=== PATIENT | male | born 1960 | race Caucasian/White ===

== ENCOUNTER 2025-06-20 13:14 | Emergency (ER) | payer BC, SELFPAY ==
--- OUTSIDE RECORDS SUMMARY | 2025-06-20 13:17 | XMS_ITS | Clinical Summary ---
Author Organization [facility] Address [address] [place] [id number] Care Team Providers Care Title I Teacher Name Role Phone Jordon Vences MD Primary Care Provider [phone] Allergies No known active allergies Medications omega-3 fatty acids-vitamin E (FISH OIL) 1,000 mg cap Take 1 capsule by mouth 4 times daily. 0 09/12/2016 Active multivitamin (MVI) tabletIndicatio ns:Physical exam Take 1 tablet by mouth once daily. 0 09/12/2016 Active Active Problems Problem Noted Date Diagnosed Date Colon polyps 09/12/2016 Overview (09/12/2016): Colonoscopy 4 years ago with benign polyps, repeat study 2016. Prostate enlargement 09/12/2016 Primary osteoarthritis of hand 09/12/2016 Encounters Date Type Department Care Team Description 03/20/2025 1:05 PM CDT Office Visit [facility] [address] [place] [address] Jordon Vences MD Physical (65 yo male.); Gi Problem (More frequent reflux mostly at night. Bloating as well.) 03/20/2025 Travel from Last 3 Months Immunizations Immunization Administration Dates Next Due Influenza, IIV4 06/04/2020,11/24/2019 Td, Preservative Free (age >= 7 Years) 1 Tdap 12/16/2021,01/02/2012 Zoster (Shingrix-RZV, recombinant) 09/16/2019, Family History Medical History Relation Name Comments Cancer Father bladder Lymphoma Father non Hodgkin's; he of non Hodgkins and old age at 86. Valvular heart disease Father s/p v alve replacement possibly mitral Other Mother sclerosing chol angitis 54 Good Health Sister Relation Name Status Comments Father Heart valve rep lacement Mother sclerosing chol angits Sister Alive Social History Tobacco Use Types Packs/Day Years Used Date Smoking Tobacco: Never Smokeless Tobacco: Never Tobacco Cessation:Counseling Given: Yes Alcohol Use Standard Drinks/Week Comments Yes 5 (1 standard drink = 0.6 oz pur e alcohol) 0-1 per day PHQ-2 Answer Date Recorded PHQ-2 TOTAL SCORE 0 02/29/2024 Social Connections Answer Date Recorded Do you often feel lonely or isolated from those around you? 0 03/20/2025 Financial Resource Strain Answer Date R ecorded Difficulty of Paying Living Expenses 3 03/20/2025 Difficulty of Paying Living Expenses Not on file 03/20/2025 Food Insecurity Answer Date Recorded Do you worry your food will run out before you are able to buy more? 1 03/20/2025 Transportation Needs Answer Date Record ed Does lack of transportation keep you from medica l appointments? 1 03/20/2025 Does lack of transportation keep you from work, meetings or getting things that you need? 1 03/20/2025 Housing Stability Answer Date Recorded What is your housing situation today? 1 03/20/2025 Utilities Answer Date Recorded Do you have trouble paying f or utilities (for example, heat, electricity, water, phone)? 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 Not on file Not on file Obstetrics History Last Filed Vital Signs Vital Sign Reading Time Taken Comments Blood Pressure 114/82 03/20/2025 1:57 PM CDT Pulse 74 03/20/2025 1:10 PM CDT Temperature 36.1 C (97 F) 03/20/2025 1:10 PM CDT Respiratory Rate - - Oxygen Saturation 99% 03/20/2025 1:10 PM CDT Inhaled Oxygen Concentration - - Weight 71 kg (156 lb 8 oz) 03/20/2025 1:10 PM CD T Height 177.1 cm (5' 9.72) 03/20/2025 1:10 PM CD T Body Mass Index 22.63 03/20/2025 1:10 PM CDT Plan of Treatment Health Maintenance Due Date Last Done Comments Pneumococcal series for age 50+ (1 of 1 - PCV) 02/08/2010 Depression screening for age 12+ 02/28/2025 02/29/2024, 12/16/2021, 11/06/2020, Additional history exists COVID-19 vaccine series ( - season) 2025 07/10/2023, 08/12/2022, 12/10/2021, Additional history exists Influenza Vaccine (#1) 2025 06/04/2020, 2019 BMI (ht and wt on same day) for age 18+ 03/20/2026 03/20/2025, 02/29/2024, 12/16/2021, Additional history exists Fecal testing sDNA-FIT (Cologuard) for age 45-75 03/07/2027 03/07/2024 Lipids for age 45-75 03/20/2030 03/20/2025, 02/29/2024, 12/16/2021, Additional history exists Tetanus booster 12/17/2031 12/16/2021, 12/10, 09/11/2000 RSV vaccine for adults or (1 - 1-dose 75+ series) 02/08/2035 Zoster (shingles) series for age 50+ Completed 09/16/2019, 04/10/2019 Hepatitis C screening for age 18-79 Completed 11/05/2020 HIV for age 15-65 Completed 02/29/2024 Hepatitis B series for 19+ Aged Out N o longer eligible based on patient's age to complete this topic Procedures Procedure Name Priority Date/Time Associated Diagnosis Comments LIPID PANEL W REFLEX MEASURED LDL Routine 03/20/2025 2:19 PM CDT Other hyperlipidemia PSA TOTAL Routine 03/20/2025 2:19 PM CDT Prostate cancer screening SDNA-FIT EXTERNAL (COLOGUARD) Routine 03/07/2024 1:10 PM CDT Screening for colon cancer ANTI HIV 1/2 Routine 02/29/2024 3:11 PM CDT Encounter for screening for HIV ANTI HCV Routine 11/05/2020 4:30 PM CHILD NURSE Encounter for hepatitis C screening test for low risk patient from Last 3 Months or Most Recently Relevant to Health Maintenance Results * (ABNORMAL) LIPID PANEL W REFLEX MEASURED LDL (03/20/2025 2:19 PM CDT) [facility] CHOLESTEROL, TOTAL 232(H) <200 mg/dL [facility] HDL CHOLESTEROL 59 > OR = 40 mg/dL [facility] TRIGLYCERIDES 67 <150 mg/dL [facility] LDL-CHOLESTEROL 157(H) mg/dL (calc) [facility] Comment: Reference range: <100 Desirable range <100 mg/dL for primary prevention; <70 mg/dL for patients with CHD or diabetic patients with > or = 2 CHD risk factors. LDL-C is now calculated using the Mj-Maldonado calculation, which is a validated novel method providing better accuracy than the Friedewald equation in the estimation of LDL-C. Mj SS et al. KELBY. 2013;310(19): 5168-0132 (http://education.Urtak/faq/DGJ126) CHOL/HDLC RATIO 3.9 <5.0 (calc) [facility] NON HDL CHOLESTEROL 173(H) <130 mg/dL (calc) [facility] Comment: For patients with diabetes plus 1 major ASCVD risk factor, treating to a non-HDL-C goal of <100 mg/dL (LDL-C of <70 mg/dL) is considered a therapeutic option. Blood BLOOD SPECIMEN / Unknown 03/20/2025 2:19 PM CDT 03/20/2025 2:19 PM CDT us Jordon Vences MD CHEMISTRY Final Resu lt [facility] [address] [place] [address], [facility] [address] [place] [phone] * PSA TOTAL (DIAG OR SCREEN) (03/20/2025 2:19 PM CDT) Pathologist [facility] PSA, TOTAL 1.05 < OR = 4.00 ng/mL [facility] Comment: The total PSA value from this assay system is standardized against the WHO standard. The test result will be approximately 20% lower when compared to the equimolar-standardized total PSA (Luis Mira). Comparison of serial PSA results should be interpreted with this fact in mind. This test was performed using the Siemens chemiluminescent method. Values obtained from different assay methods cannot be used interchangeably. PSA levels, regardless of value, should not be interpreted as absolute evidence of the presence or absence of disease. Blood BLOOD SPECIMEN / Unknown 03/20/2025 2:19 PM CDT 03/20/2025 2:19 PM CDT Jordon Vences MD CHEMISTRY Final Resu lt [facility] [address] [id number], [facility] [address] [place] [phone] * SDNA-FIT EXTERNAL (COLOGUARD) (03/07/2024 1:10 PM CDT) NONINV COLON CA DNA+OCC BLD SCRN STL-IMP Negative Negative 03/12/2024 12:38 AM CDT [facility] (CLIA #:[id number]) Comment: NEGATIVE TEST RESULT. A negative Cologuard result indicates a low likelihood that a colorectal cancer (CRC) or advanced adenoma (adenomatous polyps with more advanced pre-malignant features) is present. The chance that a person with a negative Cologuard test has a colorectal cancer is less than 1 in 1500 (negative predictive value >99.9%) or has an advanced adenoma is less than 5.3% (negative predictive value 94.7%). These data are based on a prospective cross-sectional study of 10,000 individuals at average risk for colorectal cancer who were screened with both Cologuard and colonoscopy. (Day King al, N Engl J Med 2014;370(14):4177-8028) The normal value (reference range) for this assay is negative. COLOGUARD RE-SCREENING RECOMMENDATION: Periodic colorectal cancer screening is an important part of preventive healthcare for asymptomatic individuals at average risk for colorectal cancer. Following a negative Cologuard result, the [place] [employer] Society and U.S. Multi-Society Task Force screening guidelines recommend a Cologuard re-screening interval of 3 years. References: [place] [employer] Guideline for Colorectal Cancer Screening: https://www.cancer.org/cancer/iqmzm-ebvvxg-htvhni/mnkvglypu-ylawcvxmu-vbudpsp/ac s-rec ommendations.html.; Simeon DK, Naren WIGGINS, Cristofer GrigsbyK, Colorectal Cancer Screening: Recommendations for Physicians and Patients from the U.S. Multi-Society Task Force on Colorectal Cancer Screening , Am J Gastroenterology 2017; 112:0930-0345. TEST DESCRIPTION: Composite algorithmic analysis of stool DNA-biomarkers with hemoglobin immunoassay. Quantitative values of individual biomarkers are not reportable and are not associated with individual biomarker result reference ranges. Cologuard is intended for colorectal cancer screening of adults of either sex, 45 years or older, who are at average-risk for colorectal cancer (CRC). Cologuard has been approved for use by the U.S. FDA. The performance of Cologuard was established in a cross sectional study of average-risk adults aged 50-84. Cologuard performance in patients ages 45 to 49 years was estimated by sub-group analysis of near-age groups. Colonoscopies performed for a positive result may find as the most clinically significant lesion: colorectal cancer [4.0%], advanced adenoma (including sessile serrated polyps greater than or equal to 1cm diameter) [20%] or non- advanced adenoma [31%]; or no colorectal neoplasia [45%]. These estimates are derived from a prospective cross-sectional screening study of 10,000 individuals at average risk for colorectal cancer who were screened with both Cologuard and colonoscopy. (Day King al, N Engl J Med 2014;370(14):1144-0997.) Cologuard may produce a false negative or false positive result (no colorectal cancer or precancerous polyp present at colonoscopy follow up). A negative Cologuard test result does not guarantee the absence of CRC or advanced adenoma (pre-cancer). The current Cologuard screening interval is every 3 years. ([place] [employer] Society and U.S. Multi-Society Task Force). Cologuard performance data in a 10,000 patient pivotal study using colonoscopy as the reference method can be accessed at the following location: www.[employer].Semantics3/results. Additional description of the Cologuard test process, warnings and precautions can be found at www.PushToTestoguard.Semantics3. Stool specimen (specimen) (Rectum) 03/07/2024 1:10 PM CDT 03/08/2024 6:31 AM CDT us Jordon Vencse MD URINE Final Resu lt Performing Organization Address [facility]/ZIP Co de Phone Number [employer] (CLIA #:[id number]) [address] [place] [address], * ANTI HIV 1/2 (02/29/2024 3:11 PM CDT) HIV-1/HIV-2 SCREEN Non-Reacti ve Non-Reacti ve 02/29/2024 8:58 PM CDT [facility] Comment:HIV-1 p24 and HIV-1/ HIV-2 Ab Not Detected. Blood BLOOD SPECIMEN / Unknown Venipuncture / Unknown 02/29/2024 3:11 PM CDT 02/29/2024 3:11 PM CDT us Jordon Vences MD SEND OUTS Final Resu lt Performing Organization Address [facility]/ZIP Co de Phone Number [facility] [address] [place] [address], * ANTI HCV (11/05/2020 4:30 PM CHILD NURSE) HEPATITIS C ANTIBODY Non-React dee Non-React dee 11/08/2020 4:01 PM CHILD NURSE [facility] Comment:Antibodies to HCV no t detected; does not exclude the possibility of exposure to HCV. Blood BLOOD SPECIMEN / Unknown Butterfly / Unknown 11/05/2020 4:30 PM CHILD NURSE 11/05/2020 4:30 PM CHILD NURSE us Jordon Vences MD SEND OUTS Final Resu lt [facility] [address] [place] [address], from Last 3 Months or Most Recently Relevant to Health Maintenance Insurance [employer] Care Teams Title I Teacher Relationship Specialty Start Date End Date Jordon [place] [address] PCP - General Family Practice 11/24/19
[2025-06-20 13:29] VITALS: BP 144/78; PULSE 113; RESP 18; TEMP 37.6; O2SAT 95; BMI 22.7
--- NOTE | 2025-06-20 13:49 | CRLHL7_ITS ---
For Patients: As a result of the Century Cures Act, medical imaging exams and procedure reports are released immediately into your electronic medical record. You may view this report before your referring provider. If you have questions, please contact your health care provider. Indication: Cough Technique: Chest 3 views. Comparison: None. Findings/Impression: Cardiovascular and mediastinum: Heart size is normal. Unremarkable mediastinum. Lungs and pleural spaces: There is a curvilinear opacity projecting over the left lower lung, indeterminate. Lungs are otherwise clear. No pleural effusion or pneumothorax. Bones and soft tissues: No significant findings. Dictated by Laura Mccurdy MD @ 06/20/2025 3:22:48 PM (Electronically Signed)
--- NOTE | 2025-06-20 13:51 | ED.GENADULT ---
HPI - General Adult General Chief complaint: Cough Stated complaint: Weak,Fever, ABD pain during urination Time Seen by Provider: 06/20/25 13:40 History of Present Illness HPI narrative: Patient is a pleasant 65 white male who is generally pretty healthy, on no home meds with no history of respiratory issues, presents with few day history of nasal congestion runny nose cough. He thought he was better for a day but then it seemed to recur, he has got some production to his cough. He also has some suprapubic discomfort and perhaps a slower stream than normal. He does not have any saddle type pain in his groin, he does report he had history of prostatitis in the past, but has not had issues with that recently. 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 The patient now does not feel short of breath he has no chest pain, he has had cough and congestion and some suprapubic discomfort that he is concerned about potential UTI. No blood in his urine, urine stream has been slightly slower than normal as mention. Related Data Home Medications ?Medication ?Instructions ?Recorded ?Confirmed No Known Home Medications 06/20/25 06/20/25 Allergies Allergy/AdvReac Type Severity Reaction Status Date / Time No Known Drug Allergies Allergy Verified 06/20/25 13:35 Review of Systems Status of ROS: Reports: 6 or more systems reviewed and unremarkable except as noted in History and below Exam Narrative: Exam Narrative: Objective: Temp 99.6? otherwise vital signs are fairly unremarkable He is alert orient x3 pleasant man HEENT showed some redness around his nares consistent with rhinorrhea and rubbing his nose throat is clear neck is supple chest is equal breath sounds bilaterally no rales or wheezing Heart rhythm regular heart murmur Extremities are no edema He is moving in ambulatory walking about the room. Const: Vital Signs, click to edit/add: Vital Signs - 24 hr 06/20/25 13:29 Temperature 99.6 F Pulse Rate [Right Pulse Oximeter] 113 H Respiratory Rate 18 Blood Pressure [Ri ght Upper Arm] 144/78 H Pulse Oximetry 95 Oxygen Delivery Me thod Room Air Course Vital Signs Vital signs: Initial Vital Signs Temperature 99.6 F 06/20/25 13:29 Temperature Source Temporal Artery Scan 06/20/25 13:29 Pulse Rate 113 H 06/20/25 13:29 Pulse Rhythm Regular 06/20/25 13:29 Pulse Strength 3+ Normal 06/20/25 13:29 Respiratory Rate 18 06/20/25 13:29 Blood Pressure 144/78 H 06/20/25 13:29 Blood Pressure Mean 100 06/20/25 13:29 Blood Pressure Position Sitting 06/20/25 13:29 Pulse Oximetry 95 06/20/25 13:29 Oxygen Delivery Method Room Air 06/20/25 13:29 Vital Signs Temperature 99.6 F 06/20/25 13:29 Pulse Rate 113 H 06/20/25 13:29 Respiratory Rate 18 06/20/25 13:29 Blood Pressure 144/78 H 06/20/25 13:29 Pulse Oximetry 95 06/20/25 13:29 Oxygen Delivery Method Room Air 06/20/25 13:29 Temperature 99.6 F 06/20/25 13:29 Pulse Rate 113 H 06/20/25 13:29 Respiratory Rate 18 06/20/25 13:29 Blood Pressure 144/78 H 06/20/25 13:29 Pulse Oximetry 95 06/20/25 13:29 Oxygen Delivery Method Room Air 06/20/25 13:29 Medical Decision Making MDM Narrative Medical decision making narrative: [age] year white male with a history of 5 days or so of nasal congestion cough, and some suprapubic discomfort with slightly slower urinary stream. At this point I would recommend we get a urinalysis, check electrolytes and labs. Rule out UTI. He also has upper respiratory symptoms and will get viral. Swab of the nose, as well as a chest x-ray. Disposition pending findings above. Addendum 3:30 p.m. patient has some mild left lower lung apparent infiltrate on his x-ray by my review. Given his history that is consistent with a pneumonia. Would cover him with Zithromax Z-William. I think also his lab studies show slightly low sodium and he will restrict his water intake slightly, and would also note that his urinalysis looks largely unremarkable, urine culture be obtained. Recommend follow up with his regular doctor next 7-10 days certainly sooner change concerns worsening or other concerns. Lab Data Labs: Lab Results 06/20/25 06/20/25 06/20/25 Range/Units 13:50 14:25 14:37 WBC 12.42 H (4.50-11.00) K/uL RBC 5.09 (4.30-5.90) m/uL Hgb 15.6 (13.5-17.5) gm/dL Hct 46.1 (37.0-53.0) % MCV 91 (80-100) fL MCH 31 (26-34) pg MCHC 34 (32-36) gm/dL RDW Coeff of Leoncio 12.2 (11.5-15.5) % Plt Count 207 (140-440) K/uL Neut % (Auto) 73.5 H (42.0-72.0) % Lymph % (Auto) 14.7 L (20-44) % [place] % (Auto) 10.5 (0.0-11.0) % Eos % (Auto) 0.5 (0.0-7.0) % Baso % (Auto) 0.2 (0.0-3.0) % Neut # (Auto) 9.10 H (1.7-7.0) K/uL Lymph # (Auto) 1.80 (0.90-2.90) K/uL [place] # (Auto) 1.30 H (0.00-0.90) K/UL Eos # (Auto) 0.10 (0.00-0.50) K/uL Baso # (Auto) 0.00 (0.00-0.30) K/uL Abs Immat Gran (auto) 0.10 (0.00-0.30) K/uL Imm/Tot Granulo (auto) 0.6 % Sodium 128 L (135-149) mmol/L Potassium 4.2 (3.6-5.1) mmol/L Chloride 93 L (96-114) mmol/L Carbon Dioxide 29 (20-32) mmol/L Anion Gap 6 L (7-15) mEq/L BUN 11 (7-30) mg/dL Creatinine 0.9 (0.5-1.5) mg/dL Estimated Creat Clear 74.65 Estimated GFR 95 ml/min Glucose 110 (60-115) mg/dL Calcium 9.1 (8.4-10.6) mg/dL C-Reactive Protein 4.9 H (0.5-1.0) mg/dL Urine Color Yellow (Yellow) Urine Appearance Clear (Clear) Urine pH 6.0 (5.0-8.5) Ur Specific [place] <= 1.005 (1.000-1.030) Urine Protein Negative (Negative) Urine Glucose (UA) Negative (Negative) Urine Ketones 1+ A (Negative) Urine Blood Negative (Negative) Urine Nitrite Negative (Negative) Urine Bilirubin Negative (Negative) Urine Urobilinogen 0.2 (0.2-1.0) Ur Leukocyte Esterase Negative (Negative) Urine RBC 0-2 (0-2) Urine WBC 0-2 (0-5) Ur Squamous Epith Cells Few (None-Few) Urine Bacteria None (None) SARS-CoV-2 (PCR) Negative SARS-CoV-2 (Negative) Influenza Type A (PCR) Negative PCR FLU A (Negative) Influenza Type B (PCR) Negative PCR FLU B (Negative) RSV (PCR) Negative PCR RSV (Negative) Discharge Plan Discharge Clinical Impression: Urinary hesitancy, Cough, Pneumonia Patient Disposition: Home, Self-Care Condition: Stable Additional Instructions: See pack as directed, fluids, light activity, recheck with regular doctor in the next 7-10 days, return to the ED sooner problems concerns worsening. Activity Level: Light activity Discharge Diet: Regular Prescriptions: No Action No Known Home Medications Stand Alone Forms: [employer] / [employer] Info Instructions
[2025-06-20 14:17] LABS: Appearance Urine Clear (Clear)
[2025-06-20 14:32] LABS: Hematocrit* 46.1 % (37.0-53.0); Hemoglobin* 15.6 gm/dL (13.5-17.5); Immature Granulocytes Pct Auto 0.6 %; Mean Corpuscular HGB Conc 34 gm/dL (32-36); Mean Corpuscular Hemoglobin 31 pg (26-34); Mean Corpuscular Volume 91 fL (80-100); RDW Coefficient of Variation % 12.2 % (11.5-15.5); Red Blood Count* 5.09 m/uL (4.30-5.90); White Blood Count* 12.42 K/uL (4.50-11.00)
[2025-06-20 14:43] LABS: Chloride* 93 mmol/L (96-114); Potassium* 4.2 mmol/L (3.6-5.1); Sodium* 128 mmol/L (135-149)
[2025-06-20 14:44] LABS: Immature Granulocytes Abs Auto 0.10 K/uL (0.00-0.30); Lymphocytes Absolute Auto 1.80 K/uL (0.90-2.90)
[2025-06-20 14:45] LABS: Slide Review Reflex No
[2025-06-20 14:46] LABS: Blood Urea Nitrogen* 11 mg/dL (7-30); Creatinine* 0.9 mg/dL (0.5-1.5); Est. Creatinine Clearance* 74.65; Estimated Glomerular Filt Rate 95 ml/min
[2025-06-20 14:47] LABS: Anion Gap 6 mEq/L (7-15); Calcium* 9.1 mg/dL (8.4-10.6); Carbon Dioxide* 29 mmol/L (20-32); Glucose* 110 mg/dL (60-115)
[2025-06-20 15:19] LABS: PCR FLU A Negative PCR FLU A (Negative); PCR FLU B Negative PCR FLU B (Negative); PCR RSV Negative PCR RSV (Negative); SARS PCR* Negative SARS-CoV-2 (Negative)
[2025-06-20 15:35] VITALS: BP 138/87; PULSE 108; RESP 18; TEMP 37.4; O2SAT 94
== END 2025-06-20 15:49 | disposition home or self-care (01) ==
PROVIDERS: Emergency Provider Family Medicine; PCP Family Medicine
DX: R39.11 Hesitancy of micturition (principal); R05.9 Cough, unspecified; J18.9 Pneumonia, unspecified organism
CPT/HCPCS: 36415; 71046; 80048; 81001; 85025; 86140; 87086; 87631; 99284